=== PATIENT | male | born 1985 | race Caucasian/White ===

== ENCOUNTER → 2025-02-19 | Outpatient (CLI) | payer OTHER | LOC: M PLAIMG 07:03 | DX: J31.0 Chronic rhinitis (principal) ==

== ENCOUNTER 2025-05-28 06:02 | Day surgery (SDC) | payer OTHER ==
[~2025-05-28] VITALS: Ht 170.2 cm; Wt 82.6 kg
[~2025-05-28 06:02] MED LIST: ALLE180T33 PO; AZEL137S8 NARES; IBUP200C89 PO; THERTAB52 PO
[2025-05-28] MEDS ORDERED: LR 1,000 ML IV SCH (06:35)
[2025-05-28] MEDS ORDERED: LIDOCAINE 2% 100 MG/5 ML SDV (FOR ANES.) As Ordered ONE (06:44)
[2025-05-28] MEDS ORDERED: ACETAMINOPHEN 1000MG/100ML IV BAG As Ordered ONE (06:45)
[2025-05-28] MEDS ORDERED: dexAMETHasone 4 MG/ML 1 ML VIAL As Ordered ONE (06:47)
[2025-05-28] MEDS ORDERED: MIDAZOLAM INJ 2 MG/2 ML VIAL As Ordered ONE (06:47)
[2025-05-28] MEDS ORDERED: ONDANSETRON 4MG/2ML VIAL As Ordered ONE (06:47)
[2025-05-28] MEDS ORDERED: dexmedeTOMIDine (4 MCG/ML) 200 MCG/50 ML BTL As Ordered ONE (06:47)
[2025-05-28] MEDS ORDERED: TRANEXAMIC ACID 100 MG/ML 10ML VIAL As Ordered ONE (06:57)
[2025-05-28] MEDS: ceFAZolin SOD 2 GM IV ONCE IV ONE (07:41)
[2025-05-28] MEDS: TRANEXAMIC ACID 100 MG/ML 10ML VIAL IV ONE (07:42)
[2025-05-28] MEDS: EPINEPHrine 1 MG/ML INJ 30 ML MD-VIAL As Ordered ONE (08:08)
[2025-05-28] MEDS: VANCOMYCIN 1000MG/20ML VIAL As Ordered ONE (08:09)
[2025-05-28] MEDS: ONDANSETRON 4MG/2ML VIAL IV PRN (09:08)
[2025-05-28] MEDS: KETOROLAC 30 MG/ML 1 ML VIAL IV ONE (09:40)
[2025-05-28] MEDS ORDERED: KETOROLAC 30 MG/ML 1 ML VIAL As Ordered ONE (09:42)
[2025-05-28 11:03] VITALS: BP 121/67; TEMP 96.8; O2SAT 99
== END 2025-05-28 11:10 | disposition home or self-care (01) ==
LOC: M SDC 06:02
PROVIDERS: ATTEND Student in an Organized Health Care Education/Training Program
DX: M23.262 Derangement of other lateral meniscus due to old tear or injury, left knee (principal); M25.562 Pain in left knee; M67.52 Plica syndrome, left knee; J30.2 Other seasonal allergic rhinitis; K21.9 Gastro-esophageal reflux disease without esophagitis; R51.9 Headache, unspecified; Z79.899 Other long term (current) drug therapy
CPT/HCPCS: 29875; 29882; C1713; J0131; J0165; J0665; J0688; J1100; J1885; J2250; J2405; J3010